=== PATIENT | female | born 1960 | race Caucasian/White ===

== ENCOUNTER → 2017-07-12 | Outpatient (CLI) | payer BC ==
[~2017-07-12] MED LIST: ACYC5CRE4 TP; ACYC5CRE6 TP; ACYC800T99 PO; ASCO1CAP7 PO; CITA-141 PO; CITA-156; CITA-157 PO; CYCL10TA29 PO; ESCI20TA38 PO; FAMC250T4 PO; GLUC-198 PO; HYO125 SL; IBUP200C72 PO; KET10 PO; LEV25 PO; LIO25 PO; LORA-630 PO; MAGN200T8 PO; MEP50 PO; OMEG-96 PO; OMEG500C5 PO; OMEP-218 PO; ONDA4TAB PO; ORP100 PO; PAN40 PO; PRED-1 PO; PROM-110 PO; SYNTHROID; TRAM-420 PO; TRAM-627 PO; [UNRECOGNIZED DRUG - CODE]; [UNRECOGNIZED DRUG - CODE]; medrol dose pack
[2017-07-12 12:34] LABS: PLATELET COUNT, AUTOMATED 272 K/uL (150-450)
== END ==
LOC: LAB 12:04
PROVIDERS: ATTEND Emergency Medicine
DX: R19.7 Diarrhea, unspecified (principal)
CPT/HCPCS: 36415; 82040; 82247; 82310; 82374; 82435; 82565; 82947; 84075; 84132; 84155; 84295; 84450; 84460; 84520; 85007; 85027

== ENCOUNTER 2017-07-20 16:46 | Emergency (ER) | payer BC ==
[~2017-07-20] VITALS: Ht 10.2 cm; Wt 107.5 kg
[~2017-07-20 16:46] MED LIST changes: +LEV112 PO; +SUMA100T32 PO
--- NOTE | 2017-07-20 16:48 | ER Report ---
History and Physical Time Seen By MD: 16:48 Hx. of Stated Complaint: Has a history of chronic migraines today took Imitrex and after this became nauseated with a worsening headache HPI/ROS Patient is a 57-year-old female is seen by her provider for chronic migraines stated today that she took a new medication Imitrex after she took this medication she became very nauseated and headache worsened and is now complaining of a right parietal headache states that this is different than her normal migraine Remainder of the 14 system rev: Yes Allergies: Coded Allergies: hydrocodone (Verified Allergy, Intermediate, MENTAL STATUS CHANGES, ) n/v, anxiety oxycodone (Verified Allergy, Mild, NAUSEA/VOMITING, 03/30/15) codeine (Verified Allergy, Unknown, 03/30/15) oxycodone HCl (Verified Allergy, Unknown, 03/30/15) Uncoded Allergies: IMMUTREX (Allergy, Mild, 07/20/17) Home Meds Active Scripts Sumatriptan Succinate (IMITREX) 100 Mg Tablet, 100 MG PO ONCE, #2 TAB Take one tablet at onset of headache and repeat in 2 hours if needed. Prov:DOROTHEA DONG MD 07/20/17 Promethazine Hcl (PROMETHAZINE HCL) 25 Mg Tablet, 25 MG PO Q8H for Nausea, #10 TAB Prov:DOROTHEA DONG MD 07/12/17 Reported Medications Pregnenolone (PREGNENOLONE) 5 Gm Powder, 50 MG MC 07/20/17 [Biest] No Conflict Check 07/20/17 Levothyroxine Sodium (LEVOTHYROXINE SODIUM) 0.112 Mg Tab, 1 TAB PO QDAY, TAB 07/20/17 Liothyronine Sodium (LIOTHYRONINE SODIUM) 25 Mcg Tablet, 25 MCG PO DAILY 07/12/17 Acyclovir/Hydrocortisone (XERESE 5%-1% CREAM) 5 Gm Cream..g., 5 GM TP 07/12/17 Famciclovir (FAMCICLOVIR) 250 Mg Tablet, 250 MG PO PRN 05/09/17 Citalopram Hydrobromide (CELEXA) 40 Mg Tablet, 40 MG PO QAM, #5 TAB 05/09/17 Discontinued Reported Medications Orphenadrine Citrate (ORPHENADRINE CITRATE) 100 Mg Tabsr, 100 MG PO TID PRN for H/A W/SULINDAC 05/09/17 [place]-3 Fatty Acids/Fish Oil (OMEGA 3 1,000 MG SOFTGEL) 1 Each Capsule, 1 EACH PO QDAY, CAPSULE 05/09/17 Acyclovir (ZOVIRAX) 5 Gm Cream..g., 5 GM TP PRN 05/09/17 Past Medical/Surgical History Chronic migraine, hypothyroidism Reviewed Nurses Notes: Yes Old Medical Records Reviewed: Yes Hx Smoking: No Smoking Status: Never Smoker Exposure to Second Hand Smoke?: Yes Family History of: Other Constitutional Vital Sign - Last 24 Hours 07/20/17 07/20/17 07/20/17 07/20/17 16:52 16:54 17:00 17:01 Temp 98.0 Pulse 73 72 Resp 18 14 B/P (MAP) 147/90 147/90 (109) 150/87 (108) Pulse Ox 95 96 07/20/17 07/20/17 07/20/17 07/20/17 17:16 17:31 17:46 18:01 Pulse 70 67 67 ??? Resp 16 16 17 Pulse Ox 95 97 97 07/20/17 07/20/17 07/20/17 07/20/17 18:16 18:31 18:34 18:39 Pulse ??? 67 Resp 12 B/P (MAP) 93/58 (70) 116/61 (79) Pulse Ox 94 07/20/17 07/20/17 07/20/17 07/20/17 18:40 18:45 19:00 19:01 Pulse 67 82 Resp 13 14 B/P (MAP) 120/95 (103) 131/60 (83) Pulse Ox 94 07/20/17 19:15 Pulse 70 Resp 11 Pulse Ox 94 Physical Exam 57-year-old female alert and oriented anxious HEENT has normocephalic/ atraumatic tympanic membranes are non-reddened throat is non-reddened no lymphadenopathy neck is supple no JVD heart rate regular no murmur rubs or gallops lungs are clear to auscultation abdomen is obese bowel sounds 4 quadrants moves all extremities no peripheral edema Medical Decision Making Data Points Result Diagram: 07/20/17 1700 07/20/17 1700 Laboratory Hematology Test 07/20/17 17:00 Red Blood Count 5.77 M/uL (4.17-5.56) Mean Corpuscular Volume 83.3 fL (80.0-96.0) Mean Corpuscular Hemoglobin 28.9 pg (26.0-33.0) Mean Corpuscular Hemoglobin Concent 34.7 g/dL (32.0-36.0) Red Cell Distribution Width 12.6 % (11.5-14.5) Mean Platelet Volume 7.1 fL (7.2-11.1) Neutrophils (%) (Auto) 54.8 % (39.4-72.5) Lymphocytes (%) (Auto) 35.2 % (17.6-49.6) Monocytes (%) (Auto) 6.9 % (4.1-12.4) Eosinophils (%) (Auto) 2.2 % (0.4-6.7) Basophils (%) (Auto) 0.9 % (0.3-1.4) Nucleated RBC Relative Count (auto) 0.0 /100WBC Neutrophils # (Auto) 4.9 K/uL (2.0-7.4) Lymphocytes # (Auto) 3.2 K/uL (1.3-3.6) Monocytes # (Auto) 0.6 K/uL (0.3-1.0) Eosinophils # (Auto) 0.2 K/uL (0.0-0.5) Basophils # (Auto) 0.1 K/uL (0.0-0.1) Nucleated RBC Absolute Count (auto) 0.00 K/uL Sodium Level 137 mmol/L (137-145) Potassium Level 4.2 mmol/L (3.5-5.0) Chloride Level 105 mmol/L (98-107) Carbon Dioxide Level 23 mmol/L (22-31) Blood Urea Nitrogen 14 mg/dl (7-18) Creatinine 0.70 mg/dl (0.52-1.04) Glomerular Filtration Rate Calc > 60.0 Random Glucose 91 mg/dl (75-110) Calcium Level 10.4 mg/dl (8.4-10.2) Total Bilirubin 0.7 mg/dl (0.2-1.3) Aspartate Amino Transf (AST/SGOT) 37 U/L (0-35) Alanine Aminotransferase (ALT/SGPT) 48 U/L (0-56) Alkaline Phosphatase 92 U/L (0-126) Troponin I < 0.012 ng/ml C-Reactive Protein 0.7 mg/dl (<1.0) Total Protein 7.5 gm/dl (6.3-8.2) Albumin 4.0 g/dl (3.5-5.0) Chemistry Test 07/20/17 17:00 White Blood Count 9.0 k/uL (4.5-11.0) Red Blood Count 5.77 M/uL (4.17-5.56) Hemoglobin 16.7 g/dL (12.0-16.0) Hematocrit 48.1 % (34.0-47.0) Mean Corpuscular Volume 83.3 fL (80.0-96.0) Mean Corpuscular Hemoglobin 28.9 pg (26.0-33.0) Mean Corpuscular Hemoglobin Concent 34.7 g/dL (32.0-36.0) Red Cell Distribution Width 12.6 % (11.5-14.5) Platelet Count 260 K/uL (150-450) Mean Platelet Volume 7.1 fL (7.2-11.1) Neutrophils (%) (Auto) 54.8 % (39.4-72.5) Lymphocytes (%) (Auto) 35.2 % (17.6-49.6) Monocytes (%) (Auto) 6.9 % (4.1-12.4) Eosinophils (%) (Auto) 2.2 % (0.4-6.7) Basophils (%) (Auto) 0.9 % (0.3-1.4) Nucleated RBC Relative Count (auto) 0.0 /100WBC Neutrophils # (Auto) 4.9 K/uL (2.0-7.4) Lymphocytes # (Auto) 3.2 K/uL (1.3-3.6) Monocytes # (Auto) 0.6 K/uL (0.3-1.0) Eosinophils # (Auto) 0.2 K/uL (0.0-0.5) Basophils # (Auto) 0.1 K/uL (0.0-0.1) Nucleated RBC Absolute Count (auto) 0.00 K/uL Glomerular Filtration Rate Calc > 60.0 Calcium Level 10.4 mg/dl (8.4-10.2) Total Bilirubin 0.7 mg/dl (0.2-1.3) Aspartate Amino Transf (AST/SGOT) 37 U/L (0-35) Alanine Aminotransferase (ALT/SGPT) 48 U/L (0-56) Alkaline Phosphatase 92 U/L (0-126) Troponin I < 0.012 ng/ml C-Reactive Protein 0.7 mg/dl (<1.0) Total Protein 7.5 gm/dl (6.3-8.2) Albumin 4.0 g/dl (3.5-5.0) EKG/Imaging EKG Interpretation EKG at 1720 normal sinus rhythm ventricular rate 67 QTc is 450 Imaging FACILITY: [facility] [place] PATIENT NAME: Itzel Varela : 1960 MR: [id number] V: [id number] EXAM DATE: [id number] ORDERING PHYSICIAN: ANNI KWAN TECHNOLOGIST: Location: [facility] Patient: Itzel Varela : 1960 Visit/Account:[id number] Date of Sevice: 07/20/2017 CT OF THE BRAIN WITHOUT CONTRAST HISTORY: Headache PROCEDURE: 3.0 mm contiguous axial sections were performed through the brain. Sagittal and coronal reformats were submitted. COMPARISON: None FINDINGS: BRAIN: Brain and intracranial structures: There is no mass lesion, hemorrhage or acute infarct. Orbits (included portions): Normal. Scalp: Normal. Skull: Normal. Paranasal sinuses and mastoid air cells (included portions): Normal. IMPRESSION: No evidence of acute intracranial abnormality. One of the following dose optimization techniques was utilized in the performance of this exam: Automated exposure control; adjustment of the mA and/ or kV according to the patient's size; or use of an iterative reconstruction technique. Specific details can be referenced in the facility's radiology CT exam operational policy. Report Dictated By: Savanah Villaseñor MD at 07/20/2017 6:57 PM Report E-Signed By: Savanah Villaseñor MD at 07/20/2017 7:01 PM WSN:[id number] ED Course/Re-evaluation Clinical Indication for ER IV: Hydration ED Course Received a liter of IV fluids in the emergency room received 30 of Toradol and 10 of Compazine by mouth felt much better after treatment does not feel like she has a residual effects from the Imitrex will follow up with her primary care physician for further testing Re-evaluation Feels better after treatment is ready to go home with follow-up with her physician tomorrow Decision to Disposition Date: Jul 20, 2017 Decision to Disposition Time: 19:17 Depart Departure Latest Vital Signs Vital Signs Date Time Temp Pulse Resp B/P (MAP) Pulse Ox O2 Delivery O2 Flow Rate FiO2 07/20/17 19:15 70 11 94 07/20/17 19:01 131/60 (83) 07/20/17 16:52 98.0 Impression: Primary Impression: Medication reaction Additional Impression: Migraine Condition: Improved Disposition: HOME OR SELF-CARE Referrals: DOROTHEA DONG MD (PCP) 2 Days Patient Instructions: Adverse Drug Reaction (ED), Migraine Headache (ED) Problem Qualifiers ANNI KWAN Jul 20, 2017 16:48
[2017-07-20] MEDS ORDERED: NS(*) 0.9% 1000 ML BAG 1,000 ML IV ONE (17:02)
[2017-07-20] MEDS ORDERED: PROCHLORPERAZINE MAL 5 MG TAB PO ONE (17:05)
[2017-07-20] MEDS ORDERED: KETOROLAC 30 MG/ML VIAL IVP ONE (17:05)
--- NOTE | 2017-07-20 17:30 | EKG ---
FACILITY: [facility] [place] PATIENT NAME: ALEX BURNS : [id number] MR: [id number] V: [id number] EXAM DATE: ORDERING PHYSICIAN: ANNI KWAN TECHNOLOGIST: JEAN PIERRE Smith Reason : PAIN Blood Pressure : / mmHG Vent. Rate : 067 BPM Atrial Rate : 067 BPM P-R Int : 138 ms QRS Dur : 086 ms QT Int : 426 ms P-R-T Axes : 052 061 043 degrees QTc Int : 450 ms Normal sinus rhythm Normal ECG When compared with ECG of 11-JUN-2012 17:53, No significant change was found Confirmed by LATONYA NICOLE ([id number]) on 07/21/2017 2:33:50 AM Referred By: Confirmed By:LATONYA NICOLE
[2017-07-20 17:59] LABS: PLATELET COUNT, AUTOMATED 260 K/uL (150-450)
[2017-07-20] MEDS ORDERED: BIEST (18:42)
[2017-07-20] MEDS ORDERED: [UNRECOGNIZED DRUG - CODE] MC (18:43)
[2017-07-20 19:01] VITALS: BP 131/60
--- NOTE | 2017-07-20 19:06 | RADIOLOGY IMAGING REPORT ---
FACILITY: [facility] PATIENT NAME: Itzel Varela : 1960 MR: [id number] V: [id number] EXAM DATE: ORDERING PHYSICIAN: ANNI KWAN TECHNOLOGIST: Location: [facility] Patient: Itzel Varela : 1960 Visit/Account:[id number] Date of Sevice: 07/20/2017 CT OF THE BRAIN WITHOUT CONTRAST HISTORY: Headache PROCEDURE: 3.0 mm contiguous axial sections were performed through the brain. Sagittal and coronal r eformats were submitted. COMPARISON: None FINDINGS: BRAIN: Brain and intracranial structures: There is no mass lesion, hemorrhage or acute infarct. Orbits (included portions): Normal. Scalp: Normal. Skull: Normal. Paranasal sinuses and mastoid air cells (included portions): Normal. IMPRESSION: No evidence of acute intracranial abnormality. One of the following dose optimization techniques was utilized in the performance of this exam: Autom ated exposure control; adjustment of the mA and/or kV according to the patient's size; or use of an i terative reconstruction technique. Specific details can be referenced in the facility's radiology C T exam operational policy. Report Dictated By: Savanah Villaseñor MD at 07/20/2017 6:57 PM Report E-Signed By: Savanah Villaseñor MD at 07/20/2017 7:01 PM [id number]
[2017-07-24] MEDS ORDERED: LEVO-3 PO (13:17)
== END 2017-07-20 19:22 | disposition home or self-care (01) ==
LOC: ER 17:06
DX: T39.8X5A Adverse effect of other nonopioid analgesics and antipyretics, not elsewhere classified, initial encounter (principal); G43.909 Migraine, unspecified, not intractable, without status migrainosus
CPT/HCPCS: 70450; 84484; 85025; 86140; 93005; 96361; 96374; 99284; J1885; J7030; Q0164; 82040; 82247; 82310; 82374; 82435; 82565; 82947; 84075; 84132; 84155; 84295; 84450; 84460; 84520

== ENCOUNTER → 2017-07-21 | Outpatient (CLI) | payer BC ==
[~2017-07-21] MED LIST changes: +BIEST; +LEVO-3 PO; +[UNRECOGNIZED DRUG - CODE] MC
== END ==
LOC: LAB 09:25
PROVIDERS: ATTEND Emergency Medicine
DX: E03.9 Hypothyroidism, unspecified (principal); E83.52 Hypercalcemia; R52 Pain, unspecified; E66.01 Morbid (severe) obesity due to excess calories
CPT/HCPCS: 36415; 82306; 82465; 83718; 84443; 84478

== ENCOUNTER → 2017-09-12 | Outpatient (CLI) | payer BC ==
[~2017-09-12] MED LIST changes: +LEVO75TA73 PO
== END ==
LOC: LAB 11:28
PROVIDERS: ATTEND Emergency Medicine
DX: E03.9 Hypothyroidism, unspecified (principal); E83.52 Hypercalcemia
CPT/HCPCS: 36415; 82310; 83970; 84443

== ENCOUNTER → 2017-11-09 | Outpatient (CLI) | payer BC | LOC: LAB 14:35 | PROVIDERS: ATTEND Emergency Medicine | DX: E03.9 Hypothyroidism, unspecified (principal) | CPT/HCPCS: 36415; 84443 ==

== ENCOUNTER → 2017-11-30 | Outpatient (CLI) | payer BC | LOC: LAB 16:22 | PROVIDERS: ATTEND Emergency Medicine | DX: E83.52 Hypercalcemia (principal); E55.9 Vitamin D deficiency, unspecified | CPT/HCPCS: 36415; 82306; 82310; 83970 ==